=== PATIENT | female | born 1985 | race Caucasian/White ===

== ENCOUNTER 2022-02-21 21:32 | Emergency (ER) | payer OTHER ==
[2022-02-21 23:03] LABS: RED BLOOD COUNT 5.08 M/UL (4.00-5.10); WHITE BLOOD COUNT 12.6 K/UL (4.5-11.0)
[2022-02-21 23:25] LABS: BUN/CREATININE RATIO 24 (0-10)
== END 2022-02-22 02:44 | disposition home or self-care (01) ==
LOC: ER1 21:32
PROVIDERS: Family Medicine
DX: R07.2 Precordial pain (principal); E11.9 Type 2 diabetes mellitus without complications; I10 Essential (primary) hypertension; R10.13 Epigastric pain
CPT/HCPCS: 71046; 80053; 82550; 82553; 83690; 84484; 85025; 93005; 99284